=== PATIENT | male | born 1925 | race Caucasian/White ===

== ENCOUNTER → 2016-05-19 | Outpatient (REF) | payer MEDICARE, OTHER ==
[~2016-05-19] MED LIST: IRON65TA PO; LEVO25TA5 PO; TIMO5OPG OU; XALA0.002 OU
== END ==
LOC: M LAB REF 13:00
PROVIDERS: ATTEND Nurse Practitioner Family
DX: D64.9 Anemia, unspecified (principal)

== ENCOUNTER 2016-05-21 08:06 | Outpatient (CLI) | payer MEDICARE, OTHER ==
[~2016-05-21 08:06] MED LIST changes: +ACETAMINOPHEN TAB 650MG DOSE (2X325MG) PO SCH; +diphenhydrAMINE 25 MG CAP PO SCH
== END 2016-05-21 13:00 | disposition home or self-care (01) ==
LOC: M INFU 08:06
PROVIDERS: ATTEND Nurse Practitioner Family
DX: D64.9 Anemia, unspecified (principal); Z79.899 Other long term (current) drug therapy
CPT/HCPCS: 36430; P9016

== ENCOUNTER 2016-06-23 11:05 | Outpatient (CLI) | payer MEDICARE, OTHER ==
[~2016-06-23 11:05] MED LIST changes: -ACETAMINOPHEN TAB 650MG DOSE (2X325MG) PO SCH; -diphenhydrAMINE 25 MG CAP PO SCH
[2016-06-23] MEDS ORDERED: diphenhydrAMINE 25 MG CAP PO ONE (11:15)
[2016-06-23] MEDS ORDERED: ACETAMINOPHEN TAB 650MG DOSE (2X325MG) PO ONE (11:15)
== END 2016-06-23 17:00 | disposition home or self-care (01) ==
LOC: M INFU 11:05
PROVIDERS: ATTEND Nurse Practitioner Family
DX: D64.9 Anemia, unspecified (principal); Z79.899 Other long term (current) drug therapy
CPT/HCPCS: 36430; 86850; 86900; 86901; 86920; P9016

== ENCOUNTER → 2016-07-07 | Outpatient (REF) | payer MEDICARE, OTHER | LOC: M LAB REF 16:51 | PROVIDERS: ATTEND Internal Medicine Medical Oncology | DX: D46.9 Myelodysplastic syndrome, unspecified (principal) ==

== ENCOUNTER 2016-07-08 10:22 | Outpatient (CLI) | payer MEDICARE, OTHER ==
[~2016-07-08] VITALS: Ht 170.2 cm; Wt 56.4 kg
[~2016-07-08 10:22] MED LIST changes: +ACETAMINOPHEN TAB 650MG DOSE (2X325MG) PO SCH; +diphenhydrAMINE 25 MG CAP PO SCH
== END 2016-07-08 15:30 | disposition home or self-care (01) ==
LOC: M INFU 10:22
PROVIDERS: ATTEND Internal Medicine Medical Oncology
DX: D46.9 Myelodysplastic syndrome, unspecified (principal); Z79.899 Other long term (current) drug therapy
CPT/HCPCS: 36430; P9016

== ENCOUNTER → 2016-07-14 | Outpatient (REF) | payer MEDICARE, OTHER ==
[~2016-07-14] MED LIST changes: -ACETAMINOPHEN TAB 650MG DOSE (2X325MG) PO SCH; -diphenhydrAMINE 25 MG CAP PO SCH
[2016-07-14 18:37] LABS: PERCENT SATURATION 59.6 % (19.7-37.4)
== END ==
LOC: M LAB REF 16:19
PROVIDERS: ATTEND Internal Medicine Medical Oncology
DX: D46.9 Myelodysplastic syndrome, unspecified (principal)

== ENCOUNTER 2016-07-21 11:10 | Outpatient (CLI) | payer MEDICARE, OTHER ==
[2016-07-21] MEDS ORDERED: diphenhydrAMINE 25 MG CAP PO ONE (11:45)
[2016-07-21] MEDS ORDERED: ACETAMINOPHEN TAB 650MG DOSE (2X325MG) PO ONE (11:45)
== END 2016-07-21 17:05 | disposition home or self-care (01) ==
LOC: M INFU 11:10
PROVIDERS: ATTEND Internal Medicine Medical Oncology
DX: D46.9 Myelodysplastic syndrome, unspecified (principal); Z79.899 Other long term (current) drug therapy
CPT/HCPCS: 36430; 86850; 86900; 86901; 86920; P9016

== ENCOUNTER 2016-08-21 10:39 | Outpatient (CLI) | payer MEDICARE, OTHER ==
[~2016-08-21 10:39] MED LIST changes: +ACETAMINOPHEN TAB 650MG DOSE (2X325MG) PO SCH; +diphenhydrAMINE 25 MG CAP PO SCH
[2016-08-21 11:03] VITALS: BP 134/63
[2016-08-21 20:05] VITALS: BP 140/60
== END 2016-08-21 20:16 | disposition home or self-care (01) ==
LOC: M OPCLI4PV 10:39 → M MSPAV 10:44 → M OPCLI4PV 20:16
PROVIDERS: ATTEND Internal Medicine Medical Oncology
DX: D64.9 Anemia, unspecified (principal)
CPT/HCPCS: 36430; 86850; 86900; 86901; 86920; P9016

== ENCOUNTER 2016-09-10 11:22 | Outpatient (CLI) | payer MEDICARE, OTHER ==
[~2016-09-10] VITALS: Ht 170.2 cm; Wt 56.4 kg
[~2016-09-10 11:22] MED LIST changes: -ACETAMINOPHEN TAB 650MG DOSE (2X325MG) PO SCH; -diphenhydrAMINE 25 MG CAP PO SCH
[2016-09-10] MEDS ORDERED: diphenhydrAMINE 25 MG CAP PO ONE (11:30)
[2016-09-10] MEDS ORDERED: ACETAMINOPHEN TAB 650MG DOSE (2X325MG) PO ONE (11:30)
== END 2016-09-10 16:50 | disposition home or self-care (01) ==
LOC: M INFU 11:22
PROVIDERS: ATTEND Internal Medicine Medical Oncology
DX: D46.9 Myelodysplastic syndrome, unspecified (principal); Z79.899 Other long term (current) drug therapy
CPT/HCPCS: 36430; 86850; 86900; 86901; 86920; P9016

== ENCOUNTER 2016-10-06 09:44 | Outpatient (CLI) | payer MEDICARE, OTHER ==
[~2016-10-06] VITALS: Ht 170.2 cm; Wt 56.4 kg
[~2016-10-06 09:44] MED LIST changes: +ACETAMINOPHEN TAB 650MG DOSE (2X325MG) PO SCH; -XALA0.002 OU; +XALA0.007 OU; +diphenhydrAMINE 25 MG CAP PO SCH
== END 2016-10-06 16:00 | disposition home or self-care (01) ==
LOC: M INFU 09:44
PROVIDERS: ATTEND Internal Medicine Medical Oncology
DX: D64.9 Anemia, unspecified (principal); Z79.899 Other long term (current) drug therapy
CPT/HCPCS: 36430; 86850; 86900; 86901; 86920; P9016

== ENCOUNTER → 2016-10-20 | Outpatient (REF) | payer MEDICARE, OTHER ==
[~2016-10-20] MED LIST changes: -ACETAMINOPHEN TAB 650MG DOSE (2X325MG) PO SCH; +CIPR-249 PO; +JADE1TAB2 PO; +LASI20TA PO; +NITR4TASL SL; +STOO100T PO; +TIMO0.5S29 OU; +TYLE325T5 PO; -diphenhydrAMINE 25 MG CAP PO SCH
[2016-10-20 15:31] LABS: PERCENT SATURATION 92.4 % (19.7-37.4)
== END ==
LOC: M LAB REF 13:46
PROVIDERS: ATTEND Internal Medicine Medical Oncology
DX: D46.9 Myelodysplastic syndrome, unspecified (principal)

== ENCOUNTER 2016-10-27 10:10 | Outpatient (CLI) | payer MEDICARE, OTHER ==
[~2016-10-27 10:10] MED LIST changes: -CIPR-249 PO; -JADE1TAB2 PO; -LASI20TA PO; -NITR4TASL SL; -STOO100T PO; -TIMO0.5S29 OU; -TYLE325T5 PO
[2016-10-27] MEDS ORDERED: diphenhydrAMINE 25 MG CAP PO ONE (10:15)
[2016-10-27] MEDS ORDERED: ACETAMINOPHEN TAB 650MG DOSE (2X325MG) PO ONE (10:15)
== END 2016-10-27 16:15 | disposition home or self-care (01) ==
LOC: M INFU 10:10
PROVIDERS: ATTEND Internal Medicine Medical Oncology
DX: D47.1 Chronic myeloproliferative disease (principal)
CPT/HCPCS: 36430; 86850; 86900; 86901; 86920; P9016

== ENCOUNTER 2016-11-10 10:35 | Outpatient (CLI) | payer MEDICARE, OTHER ==
[~2016-11-10 10:35] MED LIST changes: +ACETAMINOPHEN TAB 650MG DOSE (2X325MG) PO SCH; +diphenhydrAMINE 25 MG CAP PO SCH
== END 2016-11-10 17:45 | disposition home or self-care (01) ==
LOC: M INFU 10:35
PROVIDERS: ATTEND Internal Medicine Medical Oncology
DX: D46.9 Myelodysplastic syndrome, unspecified (principal); Z79.899 Other long term (current) drug therapy
CPT/HCPCS: 36430; 86850; 86900; 86901; 86920; P9016; P9034

== ENCOUNTER → 2016-12-16 | Outpatient (REF) | payer MEDICARE, OTHER ==
[~2016-12-16] MED LIST changes: -ACETAMINOPHEN TAB 650MG DOSE (2X325MG) PO SCH; +CIPR-249 PO; +JADE1TAB2 PO; +LASI20TA PO; +NITR4TASL SL; +STOO100T PO; +TIMO0.5S29 OU; +TYLE325T5 PO; -diphenhydrAMINE 25 MG CAP PO SCH
[2016-12-16 14:18] LABS: PERCENT SATURATION 89.1 % (19.7-50.0)
== END ==
LOC: M LAB REF 09:34
PROVIDERS: ATTEND Internal Medicine Medical Oncology
DX: D46.9 Myelodysplastic syndrome, unspecified (principal)

== ENCOUNTER 2016-12-23 11:22 | Outpatient (CLI) | payer MEDICARE, OTHER ==
[~2016-12-23 11:22] MED LIST changes: +ACETAMINOPHEN TAB 650MG DOSE (2X325MG) PO SCH; -CIPR-249 PO; -JADE1TAB2 PO; -LASI20TA PO; -NITR4TASL SL; -STOO100T PO; -TIMO0.5S29 OU; -TYLE325T5 PO; +diphenhydrAMINE 25 MG CAP PO SCH
== END 2016-12-23 16:51 | disposition home or self-care (01) ==
LOC: M INFU 11:22
PROVIDERS: ATTEND Internal Medicine Medical Oncology
DX: D64.9 Anemia, unspecified (principal)
CPT/HCPCS: 36430; 86850; 86900; 86901; 86920; P9016

== ENCOUNTER 2017-01-07 12:40 | Inpatient (IN) | payer MEDICARE, OTHER ==
[~2017-01-07 12:40] MED LIST changes: -ACETAMINOPHEN TAB 650MG DOSE (2X325MG) PO SCH; -diphenhydrAMINE 25 MG CAP PO SCH
[2017-01-07] MEDS ORDERED: ACETAMINOPHEN TAB 650MG DOSE (2X325MG) PO PRN (13:00)
[2017-01-07] MEDS ORDERED: PERCOCET 5MG/325MG TAB PO PRN (13:00)
[2017-01-07] MEDS ORDERED: MORPHINE 2 MG/ML 1ML SYRINGE IV PRN (13:00)
[2017-01-07] MEDS ORDERED: ONDANSETRON 4 MG TAB (S0181) PO PRN (13:00)
[2017-01-07] MEDS ORDERED: ONDANSETRON 4MG/2ML VIAL (J2405) IV PRN (13:00)
[2017-01-07 16:00] VITALS: BP 166/71
[2017-01-07] MEDS ORDERED: LASI20TA PO (16:50)
[2017-01-07] MEDS ORDERED: TYLE325T5 PO (16:50)
[2017-01-07] MEDS ORDERED: TIMO0.5S29 OU (16:50)
[2017-01-07] MEDS ORDERED: NITR4TASL SL (16:50)
[2017-01-07] MEDS ORDERED: STOO100T PO (16:50)
[2017-01-07] MEDS ORDERED: JADE1TAB2 PO (16:50)
[2017-01-07] MEDS: NS 1,000 ML IV SCH (17:00)
--- NOTE | 2017-01-07 17:37 | HPEPDOC ---
[facility] Medical History & Physical Date of Admission Jan 07, 2017 History and Physical HISTORY AND PHYSICAL Date of admission: 01/07/2017 PCP: Patient states that he had been seeing Dr. Nguyen, but since his recent discharge from [place], he has seen Dr. 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 He states that for several days prior to admission, he had been feeling bound up and uncomfortable and had not had a good bowel movement. He had been attempting to take stool softeners but this did not help. The day of admission to [facility], which was the day prior to his admission here, he began to have some abdominal pain and had one episode of emesis. He states that the pain never goes away completely, but it does wax and wane. Right now he rates the pain as a 4 out of 10, and states that at its worst, it is an 8-9 out of 10. He denies any blood in the emesis, and states he has not vomited today. He reports a small BM yesterday, but has not had an actual good BM in several days. He denies flatus. When he first arrived to [facility], there was some question as to whether or not this abdominal pain represented chest pain, as he did report that he had attempted to take nitroglycerin 3 times at home. The nitroglycerin evidently relieved his abdominal pain 2 times but did not help the third time. An EKG and troponin at [facility] did not indicate any acute infarct or ischemia. He does not currently report any chest pain. He does report that since being in the hospital his abdominal pain has begun to improve. At [facility], he was treated with IV fluids and imipenem. Past medical history: coronary artery disease status post PCI, hyperlipidemia, osteoarthritis, melanoma, glaucoma, MDS, recent neutropenic fever with pseudomonal bacteremia secondary to pneumonia for which he was admitted to [facility] for over 3 weeks, the patient additionally reports that while he was at [place] on this recent admission, he developed a left foot drop Past surgical history: Cardiac stenting 4, glaucoma surgery, knee surgery Family history: Parkinson's, diabetes mellitus, coronary artery disease, MDS Social history: The patient currently lives independently with his . He states that his has Alzheimer's and until this spring he had been his ' s sole caregiver. He states that recently he has had several health issues, and they now have multiple nurses who come into the home to help with his . He has a very supportive extended family locally. He denies ever smoking tobacco, and states that he drinks approximately 1 glass of wine 5 days a week. Allergies: No known drug allergies Review of systems: General: Positive for mild chills, negative for fever Eyes: Negative for vision changes and ocular discharge ENT: Negative for sore throat and nose bleed Cardiovascular: Negative for chest pain and palpitations Respiratory: Negative for cough, positive for shortness of breath GI: Negative for nausea, positive for emesis yesterday but none today, positive for constipation Musculoskeletal: Negative for neck and back pain Skin: Negative for rash Neuro: Negative for headache, positive for dizziness if he stands up too quickly , positive for numbness and tingling in the left foot that he developed foot drop in Psych: Negative for depression and suicidal ideation Endocrine: Negative for polyuria and polydipsia : Negative For dysuria Heme: Negative for bleeding Home meds: See below Physical exam: Vital signs: Vital Signs Date Time Temp Pulse Resp B/P (MAP) Pulse Ox O2 Delivery O2 Flow Rate FiO2 01/07/17 16:00 98.4 60 22 166/71 (102) 94 Room Air Gen.: awake, alert, no acute distress Eyes: Extraocular movements intact, normal sclera ENT: Moist mucous membranes Cardiovascular: RRR, no murmurs rubs or gallops Lungs: clear to auscultation bilaterally, no rales, rhonchi, or wheeze Abdomen: Soft, normal BS, mild TTP of RUQ and RLQ, no rebound or guarding Extremities: No peripheral edema Neuro: alert and oriented 3, normal speech, no focal deficits Psych: Normal mood with congruent affect Labs and radiology: See below CT of the abdomen and pelvis performed at [facility] reveals cholelithiasis as well as ileus versus early small bowel obstruction Right upper quadrant ultrasound performed at [facility] reveals cholelithiasis with acute cholecystitis Assessment and plan: 89-year-old male with coronary artery disease status post PCI, hyperlipidemia, osteoarthritis, melanoma, glaucoma, 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 1. Acute cholecystitis: The patient is currently afebrile with a neutropenia that appears to be his baseline. We will start the patient on meropenem and get blood and urine cultures. Dr. Cormier has agreed to see the patient in consultation and we appreciate his input and help with management. 2. Ileus versus early SBO: The patient will be nothing by mouth with IV fluids. Again, we appreciate the management of Dr. Cormier. 3. Coronary artery disease status post PCI, hyperlipidemia: The patient currently denies chest pain. EKG and troponins at [facility] were unremarkable. The patient does not take aspirin, statin, or beta jessica at home. This should be discussed with his primary physicians. 4. Glaucoma: Continue home eyedrops. 5. MDS: The patient follows with Dr. Henriquez and is evidently transfusion dependent. His CBC appears to be near baseline, although his platelets may be a little bit lower than usual. The patient denies any current bleeding. We will monitor his thrombocytopenia. He has a history of iron overload for which he takes oral deferasirox at home. We do not have this on formulary. The patient is welcome to bring in his home supply, otherwise we will hold this until discharge. If Dr. Cormier determines that any sort of surgical intervention or other minimally invasive intervention is necessary, we can readdress the issue of transfusion of blood products, but at this time, the patient appears to be near his baseline, and as mentioned, he denies any bleeding. We will monitor this closely, and if the need should arise, we will not hesitate to consult his oncologist. DVT prophylaxis: SCDs Dispo: admit as an inpatient to the service of Dr. Clark CODE STATUS: DNR/DNI as per the patient's expressed wishes during my conversation with him Vital Signs Vital Signs Date Time Temp Pulse Resp B/P (MAP) Pulse Ox O2 Delivery O2 Flow Rate FiO2 01/07/17 16:00 98.4 60 22 166/71 (102) 94 Room Air Home Medications Scheduled Deferasirox (Jadenu) 180 Mg Tab, 540 MG PO DAILY Furosemide (Lasix) 20 Mg Tab, 20 MG PO QHS Latanoprost (Xalatan) 0.005 % Anette, 1 DROP OU BID Timolol Maleate (Timolol Maleate) 0.5 % Anette, 1 DROP OU BID Scheduled PRN (Stool Softener) 100 Mg Tab, 100 MG PO DAILY PRN for CONSTIPATION Acetaminophen (Tylenol) 325 Mg Tab, 650 MG PO Q4H PRN for PAIN Nitroglycerin (Nitrostat) 0.4 Mg Subl, 0.4 MG SL NITRO PRN for CHEST PAIN Allergies Coded Allergies: No Known Allergies (Unverified , 11/15/13) GOMEZ BLACKWELL Jan 07, 2017 17:37
[2017-01-07] MEDS: MEROPENEM INJ 1 GM in D5W MINI-BAG PLUS 100 ML IV SCH (17:40)
[2017-01-07 18:36] LABS: EOS % 1.3 % (0.0-3.0); LYMPH % 7.9 % (24.0-44.0); MEAN CORPUSCULAR HEMOGLOBIN 33.5 pg (27.0-33.0); MEAN CORPUSCULAR HGB CONC 34.3 g/dl (32.0-36.5); MEAN CORPUSCULAR VOLUME 97.5 fl (80.0-96.0); MONO # 0.1 10^3/uL (0.0-0.8); MONO % 3.5 % (0.0-5.0); NEUTROPHILS % 87.3 % (36.0-66.0); WHITE BLOOD COUNT 2.3 10^3/uL (4.0-10.0)
[2017-01-07 18:48] LABS: INR 1.05
[2017-01-07 18:51] LABS: ALBUMIN 3.7 GM/DL (3.2-5.2); ALKALINE PHOSPHATASE 90 U/L (45-117); ALT/SGPT 64 U/L (12-78); ANION GAP 6 MEQ/L (8-16); AST/SGOT 42 U/L (15-37); BILIRUBIN,TOTAL 1.6 MG/DL (0.2-1.0); BLOOD UREA NITROGEN 18 MG/DL (7-18); CALCIUM LEVEL 8.5 MG/DL (8.8-10.2); CARBON DIOXIDE LEVEL 27 MEQ/L (21-32); CHLORIDE LEVEL 99 MEQ/L (98-107); CREATININE FOR GFR 0.78 MG/DL (0.70-1.30); GLOMERULAR FILTRATION RATE > 60.0 (>35); GLUCOSE, FASTING 130 MG/DL (83-110); MAGNESIUM LEVEL 2.2 MG/DL (1.8-2.4); POTASSIUM SERUM 4.2 MEQ/L (3.5-5.1); SODIUM LEVEL 132 MEQ/L (136-145); TOTAL PROTEIN 7.8 GM/DL (6.4-8.2)
[2017-01-07 19:14] LABS: RED CELL DISTRIBUTION WIDTH 24.8 % (11.5-14.5)
[2017-01-07 19:15] LABS: LYMPH # 0.2 10^3/uL (1.5-4.5)
[2017-01-07 19:17] LABS: ADD MORPHOLOGY? NO; PLATELET COUNT, AUTOMATED 24 10^3/uL (150-450)
[2017-01-07 20:00] VITALS: BP 174/76
[2017-01-07] MEDS: LATANOPROST 0.005% OPHTH SOLN 2.5 ML OU SCH (20:21)
[2017-01-07] MEDS: TIMOLOL MALEATE 0.5% OPHTH SOLN 5 ML OU SCH (20:21)
[2017-01-07 23:59] VITALS: BP 100/59
[2017-01-08] MEDS: NS 1,000 ML IV SCH ×2 (02:57→17:38)
[2017-01-08] MEDS: MEROPENEM INJ 1 GM in D5W MINI-BAG PLUS 100 ML IV SCH ×3 (02:57→17:38)
[2017-01-08 04:00] VITALS: BP 155/79
[2017-01-08 06:21] LABS: MEAN CORPUSCULAR HEMOGLOBIN 32.7 pg (27.0-33.0); MEAN CORPUSCULAR HGB CONC 33.5 g/dl (32.0-36.5); MEAN CORPUSCULAR VOLUME 97.8 fl (80.0-96.0)
[2017-01-08 06:37] LABS: ALBUMIN 3.4 GM/DL (3.2-5.2); ALBUMIN/GLOBULIN RATIO 0.85 (1.00-1.93); ALKALINE PHOSPHATASE 82 U/L (45-117); ALT/SGPT 50 U/L (12-78); ANION GAP 6 MEQ/L (8-16); AST/SGOT 32 U/L (15-37); BILIRUBIN,TOTAL 1.5 MG/DL (0.2-1.0); BLOOD UREA NITROGEN 15 MG/DL (7-18); CALCIUM LEVEL 8.2 MG/DL (8.8-10.2); CARBON DIOXIDE LEVEL 27 MEQ/L (21-32); CHLORIDE LEVEL 100 MEQ/L (98-107); CREATININE FOR GFR 0.66 MG/DL (0.70-1.30); GLOMERULAR FILTRATION RATE > 60.0 (>35); GLUCOSE, FASTING 123 MG/DL (83-110); POTASSIUM SERUM 4.1 MEQ/L (3.5-5.1); SODIUM LEVEL 133 MEQ/L (136-145); TOTAL PROTEIN 7.4 GM/DL (6.4-8.2)
[2017-01-08 07:07] LABS: RED CELL DISTRIBUTION WIDTH 24.9 % (11.5-14.5)
[2017-01-08 07:08] LABS: ADD MANUAL DIFFER YES; DIFF SLIDE NUMBER 65; PLATELET COUNT, AUTOMATED 28 10^3/uL (150-450)
[2017-01-08 07:20] LABS: BANDS 2 % (< 11); EOSINOPHILS 2 % (0-5); NUCLEATED RED BLOOD CELL 1 % (0-0)
[2017-01-08 07:22] LABS: ANISOCYTOSIS 3+; POLYCHROMASIA 1+
[2017-01-08 07:30] VITALS: BP 140/73
[2017-01-08] MEDS: LATANOPROST 0.005% OPHTH SOLN 2.5 ML OU SCH ×2 (10:02→20:12)
[2017-01-08] MEDS: TIMOLOL MALEATE 0.5% OPHTH SOLN 5 ML OU SCH ×2 (10:02→20:12)
[2017-01-08 12:00] VITALS: BP 166/72
--- NOTE | 2017-01-08 13:28 | IPNPDOC ---
Date Seen The patient was seen on 01/08/17. Progress Note SUBJECTIVE: 89 yo admitted yesterday for ileus and abdominal pain likely related to gallbladder disease. Denies f/c/r, no n/v/d. currently NPO and on IVfluids OBJECTIVE PHYSICAL EXAMINATION: VITAL SIGNS: Please see below. GENERAL: [NAD] HEENT: [unremarkable] CARDIOVASCULAR: [REGULAR RATE AND RHYTHM]. RESPIRATORY: [clear]. ABDOMINAL: [soft, VAGUE RUQ tenderness without rebound, normoactive BS] EXTREMITIES: [no edema, no calf tendernes] NEUROLOGICAL: [grossly intact] LABORATORY DATA: Please see below. MICROBIOLOGY: Please see below. DVT prophylaxis ordered?: [yes] ASSESSMENT AND PLAN: This is a -year-old [RACE] [GENDER] with . PROBLEMS: 1. [ACUTE CHOLECYSTITIS]: [Appreciate general surgery input. Continue nothing by mouth, IV fluids]. 2. [Ileus]: [Likely related to gallbladder disease. Continue nothing by mouth and bowel rest.]. 3. [Coronary artery disease status post PCI, hyperlipidemia]: [Recent EKG and troponins are unremarkable. He informs us that he currently does not take aspirin, statin, beta jessica. Can follow up with his primary care provider. 4. Glaucoma: Continue eyedrops. 5.MDS: Follows with Dr Henriquez, transfusion dependent. His CBC appears to be near baseline, although his platelets may be a little bit lower than usual. The patient denies any current bleeding. We will monitor his thrombocytopenia. He has a history of iron overload for which he takes oral deferasirox at home. We do not have this on formulary. The patient is welcome to bring in his home supply, otherwise we will hold this until discharge. If Dr. Cormier determines that any sort of surgical intervention or other minimally invasive intervention is necessary, we can readdress the issue of transfusion of blood products, but at this time, the patient appears to be near his baseline, and as mentioned, he denies any bleeding. We will monitor this closely, and if the need should arise, we will not hesitate to consult his oncologist. 6. DVT prophylaxis: Teds and sequentials]. DISPOSITION: [Spoke to the patient and his daughter today regarding ongoing therapy does appear to be clinically improved from yesterday. We'll continue to follow per general surgery recommendations.]. VS, I&O, 24H, [facility] Vital Signs/I&O Vital Signs Date Time Temp Pulse Resp B/P (MAP) Pulse Ox O2 Delivery O2 Flow Rate FiO2 01/08/17 12:00 98.4 63 20 166/72 (103) 99 Room Air I&O- Last 24 Hours up to 6 AM 01/09/17 06:00 Intake Total 550 ml Output Total 550 ml Balance 0 ml Laboratory Data 24H LABS Laboratory Tests 2 01/07/17 18:18: White Blood Count 2.3L, Red Blood Count 2.81L, Hemoglobin 9.4L, Hematocrit 27.4L , Mean Corpuscular Volume 97.5H, Mean Corpuscular Hemoglobin 33.5H, Mean Corpuscular Hemoglobin Concent 34.3, Red Cell Distribution Width 24.8H, Platelet Count 24*L, Neutrophils (%) (Auto) 87.3H, Lymphocytes (%) (Auto) 7.9L, Monocytes (%) (Auto) 3.5, Eosinophils (%) (Auto) 1.3, Basophils (%) (Auto) 0.0, Neutrophils # (Auto) 2.0, Lymphocytes # (Auto) 0.2L, Monocytes # (Auto) 0.1, Eosinophils # (Auto) 0.0, Basophils # (Auto) 0.0, Immature Granulocyte # (Auto) 0.0, Nucleated Red Blood Cells % (auto) 0.0, Prothrombin Time 13.8, Prothromb Time International Ratio 1.05, Anion Gap 6L, Glomerular Filtration Rate > 60.0, Blood Urea Nitrogen 18, Creatinine 0.78, Sodium Level 132L, Potassium Level 4.2 , Chloride Level 99, Carbon Dioxide Level 27, Calcium Level 8.5L, Aspartate Amino Transf (AST/SGOT) 42H, Alanine Aminotransferase (ALT/SGPT) 64, Alkaline Phosphatase 90, Total Bilirubin 1.6H, Total Protein 7.8, Albumin 3.7, Magnesium Level 2.2, Albumin/Globulin Ratio 0.90L 01/08/17 05:44: White Blood Count 2.0L, Red Blood Count 2.72L, Hemoglobin 8.9L, Hematocrit 26.6L , Mean Corpuscular Volume 97.8H, Mean Corpuscular Hemoglobin 32.7, Mean Corpuscular Hemoglobin Concent 33.5, Red Cell Distribution Width 24.9H, Platelet Count 28*L, Lymphocytes # (Auto) , Anion Gap 6L, Glomerular Filtration Rate > 60.0, Blood Urea Nitrogen 15, Creatinine 0.66L, Sodium Level 133L, Potassium Level 4.1, Chloride Level 100, Carbon Dioxide Level 27, Calcium Level 8.2L, Aspartate Amino Transf (AST/SGOT) 32, Alanine Aminotransferase (ALT/SGPT) 50, Alkaline Phosphatase 82, Total Bilirubin 1.5H, Total Protein 7.4, Albumin 3.4, Magnesium Level 2.0, Albumin/Globulin Ratio 0.85L, Neutrophils 77H, Band Neutrophils 2, Lymphocytes (Manual) 13L, Monocytes (Manual) 5, Eosinophils ( Manual) 2, Atypical Lymphocytes 1, Nucleated Red Blood Cells 1H, Polychromasia 1 +, Anisocytosis 3+, Platelet Estimate MARKED DECREASE CBC/BMP Laboratory Tests 01/07/17 18:18 Red Blood Count 2.81 L, Mean Corpuscular Volume 97.5 H, Mean Corpuscular Hemoglobin 33.5 H, Mean Corpuscular Hemoglobin Concent 34.3, Red Cell Distribution Width 24.8 H, Neutrophils (%) (Auto) 87.3 H, Lymphocytes (%) (Auto ) 7.9 L, Monocytes (%) (Auto) 3.5, Eosinophils (%) (Auto) 1.3, Basophils (%) ( Auto) 0.0, Neutrophils # (Auto) 2.0, Lymphocytes # (Auto) 0.2 L, Monocytes # ( Auto) 0.1, Eosinophils # (Auto) 0.0, Basophils # (Auto) 0.0, Calcium Level 8.5 L , Aspartate Amino Transf (AST/SGOT) 42 H, Alanine Aminotransferase (ALT/SGPT) 64 , Alkaline Phosphatase 90, Total Bilirubin 1.6 H, Total Protein 7.8, Albumin 3.7 01/08/17 05:44 Red Blood Count 2.72 L, Mean Corpuscular Volume 97.8 H, Mean Corpuscular Hemoglobin 32.7, Mean Corpuscular Hemoglobin Concent 33.5, Red Cell Distribution Width 24.9 H, Lymphocytes # (Auto) , Calcium Level 8.2 L, Aspartate Amino Transf (AST/SGOT) 32, Alanine Aminotransferase (ALT/SGPT) 50, Alkaline Phosphatase 82, Total Bilirubin 1.5 H, Total Protein 7.4, Albumin 3.4 Microbiology Microbiology 01/07/17 Blood Culture, Received Pending 01/07/17 Blood Culture, Received Pending 01/08/17 Urine Culture, Received Pending MARYURI HARDING DO Jan 08, 2017 13:28
[2017-01-08 16:00] VITALS: BP 133/62
[2017-01-08 20:00] VITALS: BP 138/63
[2017-01-08 23:59] VITALS: BP 116/58
[2017-01-09] MEDS: MEROPENEM INJ 1 GM in D5W MINI-BAG PLUS 100 ML IV SCH ×3 (03:04→17:24)
[2017-01-09 04:00] VITALS: BP 127/58
[2017-01-09 05:55] LABS: MEAN CORPUSCULAR HEMOGLOBIN 32.8 pg (27.0-33.0); MEAN CORPUSCULAR HGB CONC 33.6 g/dl (32.0-36.5); MEAN CORPUSCULAR VOLUME 97.4 fl (80.0-96.0); WHITE BLOOD COUNT 1.4 10^3/uL (4.0-10.0)
[2017-01-09 06:01] LABS: RED CELL DISTRIBUTION WIDTH 24.5 % (11.5-14.5)
[2017-01-09 06:02] LABS: ADD MANUAL DIFFER YES; DIFF SLIDE NUMBER 44; PLATELET COUNT, AUTOMATED 20 10^3/uL (150-450)
[2017-01-09 06:30] LABS: ALBUMIN 2.8 GM/DL (3.2-5.2); ALBUMIN/GLOBULIN RATIO 0.82 (1.00-1.93); ALKALINE PHOSPHATASE 64 U/L (45-117); ALT/SGPT 35 U/L (12-78); ANION GAP 6 MEQ/L (8-16); AST/SGOT 20 U/L (15-37); BILIRUBIN,TOTAL 1.2 MG/DL (0.2-1.0); BLOOD UREA NITROGEN 15 MG/DL (7-18); CARBON DIOXIDE LEVEL 26 MEQ/L (21-32); CHLORIDE LEVEL 104 MEQ/L (98-107); GLOMERULAR FILTRATION RATE > 60.0 (>35); GLUCOSE, FASTING 119 MG/DL (83-110); MAGNESIUM LEVEL 2.1 MG/DL (1.8-2.4); POTASSIUM SERUM 3.5 MEQ/L (3.5-5.1); SODIUM LEVEL 136 MEQ/L (136-145); TOTAL PROTEIN 6.2 GM/DL (6.4-8.2)
[2017-01-09 06:51] LABS: ANISOCYTOSIS 2+; EOSINOPHILS 2 % (0-5)
[2017-01-09] MEDS: NS 1,000 ML IV SCH (07:57)
[2017-01-09 09:01] VITALS: BP 109/59
[2017-01-09] MEDS: TIMOLOL MALEATE 0.5% OPHTH SOLN 5 ML OU SCH ×2 (09:02→20:06)
[2017-01-09] MEDS: LATANOPROST 0.005% OPHTH SOLN 2.5 ML OU SCH ×2 (09:02→20:07)
--- NOTE | 2017-01-09 09:19 | REP ---
PA and lateral chest: Comparison is 01/07/2017. The lung barbosa remain clear. Cardiac size is normal. The fly, mediastinum, and bony thorax are unremarkable. Impression: Negative PA and lateral chest. No change. Signed by Freddie Thorpe MD 01/09/2017 09:11 A
[2017-01-09 12:00] VITALS: BP 111/62
[2017-01-09 15:05] VITALS: BP 144/65
--- NOTE | 2017-01-09 16:05 | IPNPDOC ---
Date Seen The patient was seen on 01/09/17. Progress Note SUBJECTIVE: Patient is a 89-year-old bedside resting comfortably. His daughter present. No overnight issues. He denies chest pain, shortness of breath, nausea , vomiting, diarrhea. No fevers or chills. And feels his abdominal pain is slightly improved. OBJECTIVE PHYSICAL EXAMINATION: VITAL SIGNS: Please see below. GENERAL: [No acute distress, alert and pleasant] HEENT: [PERRLA. Throat clear. Neck supple] CARDIOVASCULAR: [Regular rate and rhythm]. RESPIRATORY: [Clear to auscultation bilaterally]. ABDOMINAL: [Vague upper and right upper quadrant discomfort but no rebound tenderness, positive bowel sounds] EXTREMITIES: [No edema, no calf tenderness] NEUROLOGICAL: [Grossly intact] PSYCHOLOGICAL: [Negative] LABORATORY DATA: Please see below. DVT prophylaxis ordered?: [Yes] ASSESSMENT AND PLAN: This is a 89-year-old male with suspected cholecystitis, abdominal pain, seems to be mildly improved. PROBLEMS: 1. [ACUTE CHOLECYSTITIS]: [Appreciate general surgery input. Plan for the time being as conservative management. Currently on clear liquid diets, we'll see how he does throughout the day if he tolerates this well. He might be a good candidate to advance his diet and discontinue IV fluids. We shall see how he does this afternoon]. 2. [Ileus]: [Likely related to gallbladder disease. Passing flatus, tolerating by mouth intake. We'll see if we can advance his diet]. 3. [Coronary artery disease status post PCI, hyperlipidemia]: [Currently does not take aspirin, statin, beta jessica. Can follow up with his primary care provider. 4. Glaucoma: Continue eyedrops. 5.MDS: Follows with Dr Henriquez, transfusion dependent. Spoke to Dr. Henriquez this morning and will not plan on transfusing unless bleeding, platelets drop below 15k, or hemaglobin drops again tomorrow. Consideration for transfusion should he need percutaneous drain placement. 6. DVT prophylaxis: Teds and sequentials]. DISPOSITION: [Likely here for another 24-48 hours. We'll try to advance diet as indicated above. Continue with conservative treatment and see how he does again in the morning.]. VS, I&O, 24H, Fishbone Vital Signs/I&O Vital Signs Date Time Temp Pulse Resp B/P (MAP) Pulse Ox O2 Delivery O2 Flow Rate FiO2 01/09/17 12:00 98.0 79 18 111/62 (78) 96 Room Air I&O- Last 24 Hours up to 6 AM 01/10/17 06:00 Intake Total 1390 ml Output Total 800 ml Balance 590 ml Laboratory Data 24H LABS Laboratory Tests 2 01/09/17 05:33: White Blood Count 1.4L, Red Blood Count 2.29L, Hemoglobin 7.5L, Hematocrit 22.3L , Mean Corpuscular Volume 97.4H, Mean Corpuscular Hemoglobin 32.8, Mean Corpuscular Hemoglobin Concent 33.6, Red Cell Distribution Width 24.5H, Platelet Count 20*L, Lymphocytes # (Auto) , Neutrophils 77H, Lymphocytes (Manual ) 21, Eosinophils (Manual) 2, Anisocytosis 2+, Macrocytosis 1+, Platelet Estimate MARKED DECREASE, Anion Gap 6L, Glomerular Filtration Rate > 60.0, Blood Urea Nitrogen 15, Creatinine 0.60L, Sodium Level 136, Potassium Level 3.5 , Chloride Level 104, Carbon Dioxide Level 26, Calcium Level 8.0L, Aspartate Amino Transf (AST/SGOT) 20, Alanine Aminotransferase (ALT/SGPT) 35, Alkaline Phosphatase 64, Total Bilirubin 1.2H, Total Protein 6.2L, Albumin 2.8L, Magnesium Level 2.1, C-Reactive Protein, Quantitative 13.90H, Albumin/Globulin Ratio 0.82L CBC/BMP Laboratory Tests 01/09/17 05:33 Red Blood Count 2.29 L, Mean Corpuscular Volume 97.4 H, Mean Corpuscular Hemoglobin 32.8, Mean Corpuscular Hemoglobin Concent 33.6, Red Cell Distribution Width 24.5 H, Lymphocytes # (Auto) , Calcium Level 8.0 L, Aspartate Amino Transf (AST/SGOT) 20, Alanine Aminotransferase (ALT/SGPT) 35, Alkaline Phosphatase 64, Total Bilirubin 1.2 H, Total Protein 6.2 L, Albumin 2.8 L Microbiology Microbiology 01/07/17 Blood Culture - Preliminary, Resulted No growth after 24 hours . All specim... 01/07/17 Blood Culture - Preliminary, Resulted No growth after 24 hours . All specim... 01/08/17 Urine Culture - Final, Complete MARYURI HARDING DO Jan 09, 2017 16:05
[2017-01-09 22:00] VITALS: BP 113/55
[2017-01-10 02:00] VITALS: BP 111/54
[2017-01-10] MEDS: MEROPENEM INJ 1 GM in D5W MINI-BAG PLUS 100 ML IV SCH ×3 (02:02→17:36)
[2017-01-10 06:00] VITALS: BP 105/53
[2017-01-10 07:22] LABS: EOS % 2.4 % (0.0-3.0); LYMPH # 0.3 10^3/uL (1.5-4.5); LYMPH % 37.6 % (24.0-44.0); MEAN CORPUSCULAR HEMOGLOBIN 33.1 pg (27.0-33.0); MEAN CORPUSCULAR HGB CONC 33.9 g/dl (32.0-36.5); MEAN CORPUSCULAR VOLUME 97.7 fl (80.0-96.0); MONO # 0.1 10^3/uL (0.0-0.8); MONO % 7.1 % (0.0-5.0); NEUTROPHILS % 52.9 % (36.0-66.0)
[2017-01-10 07:46] LABS: ALBUMIN 2.5 GM/DL (3.2-5.2); ALBUMIN/GLOBULIN RATIO 0.76 (1.00-1.93); ALKALINE PHOSPHATASE 64 U/L (45-117); ALT/SGPT 29 U/L (12-78); ANION GAP 7 MEQ/L (8-16); AST/SGOT 17 U/L (15-37); BILIRUBIN,TOTAL 0.7 MG/DL (0.2-1.0); BLOOD UREA NITROGEN 18 MG/DL (7-18); CALCIUM LEVEL 7.7 MG/DL (8.8-10.2); CARBON DIOXIDE LEVEL 25 MEQ/L (21-32); CHLORIDE LEVEL 105 MEQ/L (98-107); GLOMERULAR FILTRATION RATE > 60.0 (>35); GLUCOSE, FASTING 103 MG/DL (83-110); POTASSIUM SERUM 3.4 MEQ/L (3.5-5.1); SODIUM LEVEL 137 MEQ/L (136-145); TOTAL PROTEIN 5.8 GM/DL (6.4-8.2)
[2017-01-10 07:47] LABS: WHITE BLOOD COUNT 0.9 10^3/uL (4.0-10.0)
[2017-01-10 07:48] LABS: NEUTROPHILS # 0.5 10^3/uL (1.8-7.7); PLATELET COUNT, AUTOMATED 19 10^3/uL (150-450); RED CELL DISTRIBUTION WIDTH 24.3 % (11.5-14.5)
[2017-01-10] MEDS: TIMOLOL MALEATE 0.5% OPHTH SOLN 5 ML OU SCH ×2 (07:57→20:03)
[2017-01-10] MEDS: LATANOPROST 0.005% OPHTH SOLN 2.5 ML OU SCH ×2 (07:57→20:04)
--- NOTE | 2017-01-10 09:47 | IPNPDOC ---
Date Seen The patient was seen on 01/10/17. Progress Note SUBJECTIVE: Patient is a pleasant 89-year-old gentleman, seated at bedside eating breakfast, resting comfortably. Denies overnight issues. No chest pain, fevers, chills, nausea, vomiting, shortness of breath, productive sputum. Feels his abdominal pain has improved significantly. OBJECTIVE PHYSICAL EXAMINATION: VITAL SIGNS: Please see below. GENERAL: No acute distress, alert and oriented 3 HEENT: PERRLA. Throat clear. Neck supple, no adenopathy CARDIOVASCULAR: Regular rate and rhythm. RESPIRATORY: Clear to auscultation bilaterally. ABDOMINAL: Soft, nontender, distended, positive bowel sounds. No masses. No rebound EXTREMITIES: No edema, no calf tenderness NEUROLOGICAL: Cranial nerves II through XII grossly intact PSYCHOLOGICAL: Negative LABORATORY DATA: Please see below. MICROBIOLOGY: Please see below. DVT prophylaxis ordered?: Yes ASSESSMENT AND PLAN: This is a 89-year-old gentleman with abdominal pain, cholecystitis and followed by general surgery. And history of MDS. She follows outpatient with Dr. Henriquez. PROBLEMS: 1. ACUTE CHOLECYSTITIS: Abdominal pain much improved. Advance diet yesterday, which she is tolerating. He remains afebrile with out Leukocytosis. The cultures remain negative Appreciate input from general surgery for time being, we are continuing with conservative management.. 2. Ileus: Likely resolved. 3. Coronary artery disease status post PCI, hyperlipidemia: Currently does not take aspirin, statin, beta jessica. Can follow up with his primary care provider. 4. Glaucoma: Continue eyedrops. 5.MDS: Follows with Dr Henriquez outpatient. He did have a drop in his hemoglobin today as well as his calculated ANC is below 500 (470 today). Therefore, we'll go ahead and give him a unit of packed red blood cells and Neupogen for 2 days. 6. DVT prophylaxis: Teds and sequentials. DISPOSITION: Likely here. Another couple days, getting Neupogen today and tomorrow. We'll see how he's doing tomorrow for possible discharge.]. VS, I&O, 24H, Fishbone Vital Signs/I&O Vital Signs Date Time Temp Pulse Resp B/P (MAP) Pulse Ox O2 Delivery O2 Flow Rate FiO2 01/10/17 06:00 99.0 72 18 105/53 (70) 94 Room Air Laboratory Data 24H LABS Laboratory Tests 2 01/10/17 06:17: Immature Granulocyte % (Auto) 0.0, White Blood Count 0.9*L, Red Blood Count 1.72L, Hemoglobin 5.7*L, Hematocrit 16.8L, Mean Corpuscular Volume 97.7H, Mean Corpuscular Hemoglobin 33.1H, Mean Corpuscular Hemoglobin Concent 33.9, Red Cell Distribution Width 24.3H, Platelet Count 19*L, Neutrophils (%) (Auto) 52.9 , Lymphocytes (%) (Auto) 37.6, Monocytes (%) (Auto) 7.1H, Eosinophils (%) (Auto ) 2.4, Basophils (%) (Auto) 0.0, Neutrophils # (Auto) 0.5L, Lymphocytes # (Auto ) 0.3L, Monocytes # (Auto) 0.1, Eosinophils # (Auto) 0.0, Basophils # (Auto) 0.0 , Immature Granulocyte # (Auto) 0.0, Nucleated Red Blood Cells % (auto) 0.0, Anion Gap 7L, Glomerular Filtration Rate > 60.0, Blood Urea Nitrogen 18, Creatinine 0.60L, Sodium Level 137, Potassium Level 3.4L, Chloride Level 105, Carbon Dioxide Level 25, Calcium Level 7.7L, Aspartate Amino Transf (AST/SGOT) 17, Alanine Aminotransferase (ALT/SGPT) 29, Alkaline Phosphatase 64, Total Bilirubin 0.7, Total Protein 5.8L, Albumin 2.5L, Magnesium Level 2.0, C- Reactive Protein, Quantitative 12.60H, Albumin/Globulin Ratio 0.76L CBC/BMP Laboratory Tests 01/10/17 06:17 Red Blood Count 1.72 L, Mean Corpuscular Volume 97.7 H, Mean Corpuscular Hemoglobin 33.1 H, Mean Corpuscular Hemoglobin Concent 33.9, Red Cell Distribution Width 24.3 H, Neutrophils (%) (Auto) 52.9, Lymphocytes (%) (Auto) 37.6, Monocytes (%) (Auto) 7.1 H, Eosinophils (%) (Auto) 2.4, Basophils (%) ( Auto) 0.0, Neutrophils # (Auto) 0.5 L, Lymphocytes # (Auto) 0.3 L, Monocytes # ( Auto) 0.1, Eosinophils # (Auto) 0.0, Basophils # (Auto) 0.0, Calcium Level 7.7 L , Aspartate Amino Transf (AST/SGOT) 17, Alanine Aminotransferase (ALT/SGPT) 29, Alkaline Phosphatase 64, Total Bilirubin 0.7, Total Protein 5.8 L, Albumin 2.5 L Microbiology Microbiology 01/07/17 Blood Culture - Preliminary, Resulted No Growth after 48 hours. All Specime... 01/07/17 Blood Culture - Preliminary, Resulted No Growth after 48 hours. All Specime... 01/08/17 Urine Culture - Final, Complete MARYURI HARDING DO Jan 10, 2017 09:47
[2017-01-10] MEDS: FILGRASTIM 300 MCG/0.5 ML SYRINGE (J1442) SC SCH (11:32)
[2017-01-10 14:00] VITALS: BP 111/54
[2017-01-10 22:00] VITALS: BP 109/55
[2017-01-11] MEDS: MEROPENEM INJ 1 GM in D5W MINI-BAG PLUS 100 ML IV SCH ×2 (03:24→12:32)
[2017-01-11 05:26] LABS: EOS % 4.4 % (0.0-3.0); LYMPH # 0.3 10^3/uL (1.5-4.5); MEAN CORPUSCULAR HEMOGLOBIN 32.2 pg (27.0-33.0); MEAN CORPUSCULAR HGB CONC 33.9 g/dl (32.0-36.5); MONO # 0.1 10^3/uL (0.0-0.8); MONO % 6.6 % (0.0-5.0); NEUTROPHILS % 49.4 % (36.0-66.0)
[2017-01-11 05:36] LABS: RED CELL DISTRIBUTION WIDTH 23.5 % (11.5-14.5); WHITE BLOOD COUNT 0.9 10^3/uL (4.0-10.0)
[2017-01-11 05:37] LABS: PLATELET COUNT, AUTOMATED 18 10^3/uL (150-450)
[2017-01-11 05:39] LABS: IMMATURE GRANULOCYTE % 6.6 % (0-0); NEUTROPHILS # 0.5 10^3/uL (1.8-7.7)
[2017-01-11 05:51] LABS: ALBUMIN 2.6 GM/DL (3.2-5.2); ALBUMIN/GLOBULIN RATIO 0.79 (1.00-1.93); ALKALINE PHOSPHATASE 67 U/L (45-117); ALT/SGPT 26 U/L (12-78); ANION GAP 6 MEQ/L (8-16); AST/SGOT 17 U/L (15-37); BLOOD UREA NITROGEN 19 MG/DL (7-18); CALCIUM LEVEL 7.8 MG/DL (8.8-10.2); CARBON DIOXIDE LEVEL 27 MEQ/L (21-32); CHLORIDE LEVEL 107 MEQ/L (98-107); CREATININE FOR GFR 0.58 MG/DL (0.70-1.30); GLOMERULAR FILTRATION RATE > 60.0 (>35); GLUCOSE, FASTING 92 MG/DL (83-110); POTASSIUM SERUM 3.6 MEQ/L (3.5-5.1); SODIUM LEVEL 140 MEQ/L (136-145); TOTAL PROTEIN 5.9 GM/DL (6.4-8.2)
[2017-01-11 06:00] VITALS: BP 113/59
[2017-01-11] MEDS: LATANOPROST 0.005% OPHTH SOLN 2.5 ML OU SCH (10:17)
[2017-01-11] MEDS: TIMOLOL MALEATE 0.5% OPHTH SOLN 5 ML OU SCH (10:17)
[2017-01-11] MEDS: FILGRASTIM 300 MCG/0.5 ML SYRINGE (J1442) SC SCH (10:27)
[2017-01-11 14:00] VITALS: BP 115/53
[2017-01-11] MEDS ORDERED: CIPR-249 PO (15:22)
--- NOTE | 2017-01-11 15:33 | IPNPDOC ---
Date Seen The patient was seen on 01/11/17. Progress Note SUBJECTIVE: Patient is a pleasant 89-year-old gentleman, seated at bedside eating breakfast, resting comfortably. Denies overnight issues. No chest pain, fevers, chills, nausea, vomiting, shortness of breath, productive sputum. Feels his abdominal pain has improved significantly. yesterday started on Neupogen and getting second dose today (per Dr. Henriquez's recommendation) OBJECTIVE PHYSICAL EXAMINATION: VITAL SIGNS: Please see below. GENERAL: No acute distress, alert and oriented 3 HEENT: PERRLA. Throat clear. Neck supple, no adenopathy CARDIOVASCULAR: Regular rate and rhythm. RESPIRATORY: Clear to auscultation bilaterally. ABDOMINAL: Soft, nontender, distended, positive bowel sounds. No masses. No rebound EXTREMITIES: No edema, no calf tenderness NEUROLOGICAL: Cranial nerves II through XII grossly intact PSYCHOLOGICAL: Negative LABORATORY DATA: Please see below. MICROBIOLOGY: Please see below. DVT prophylaxis ordered?: [yes] ASSESSMENT AND PLAN: This is a 89-year-old gentleman with abdominal pain, cholecystitis and followed by general surgery. And history of MDS. She follows outpatient with Dr. Henriquez. PROBLEMS: 1. ACUTE CHOLECYSTITIS: Abdominal pain much improved. Advance diet yesterday, which she is tolerating. He remains afebrile with out Leukocytosis. The cultures remain negative. Doing much better and likely go home today or tomorrow. Stopped meropenem and started PO Cipro. 2. Ileus: Resolved. 3. Coronary artery disease status post PCI, hyperlipidemia: Currently does not take aspirin, statin, beta jessica. Can follow up with his primary care provider. 4. Glaucoma: Continue eyedrops. 5.MDS: Follows with Dr Henriquez outpatient. 6. Neutropenia: receiving day 2 Neupogen 7. Acute on Chronic anemia (likely secondary to illness): will transfuse this morning and repeat H/H at noon to determine if he can be discharged home. 6. DVT prophylaxis: Teds and sequentials. DISPOSITION: Likely discharge later today or tomorrow depending on h/h. VS, I&O, 24H, Fishbone Vital Signs/I&O Vital Signs Date Time Temp Pulse Resp B/P (MAP) Pulse Ox O2 Delivery O2 Flow Rate FiO2 01/11/17 14:00 98.6 67 18 115/53 (73) 100 10/1/17 06:00 Room Air I&O- Last 24 Hours up to 6 AM 01/12/17 05:59 Intake Total 720 ml Output Total 0 ml Balance 720 ml Laboratory Data 24H LABS Laboratory Tests 2 01/11/17 05:09: Immature Granulocyte % (Auto) 6.6H, White Blood Count 0.9*L, Red Blood Count 2.02L, Hemoglobin 6.5*L, Hematocrit 19.2L, Mean Corpuscular Volume 95.0, Mean Corpuscular Hemoglobin 32.2, Mean Corpuscular Hemoglobin Concent 33.9, Red Cell Distribution Width 23.5H, Platelet Count 18*L, Neutrophils (%) (Auto) 49.4, Lymphocytes (%) (Auto) 33.0, Monocytes (%) (Auto) 6.6H, Eosinophils (%) (Auto) 4.4H, Basophils (%) (Auto) 0.0, Neutrophils # (Auto) 0.5L, Lymphocytes # (Auto) 0.3L, Monocytes # (Auto) 0.1, Eosinophils # (Auto) 0.0, Basophils # (Auto) 0.0, Immature Granulocyte # (Auto) 0.1H, Nucleated Red Blood Cells % (auto) 0.0, Anion Gap 6L, Glomerular Filtration Rate > 60.0, Blood Urea Nitrogen 19H, Creatinine 0.58L, Sodium Level 140, Potassium Level 3.6, Chloride Level 107, Carbon Dioxide Level 27, Calcium Level 7.8L, Aspartate Amino Transf (AST/SGOT) 17, Alanine Aminotransferase (ALT/SGPT) 26, Alkaline Phosphatase 67, Total Bilirubin 1.0, Total Protein 5.9L, Albumin 2.6L, Magnesium Level 2.0, C- Reactive Protein, Quantitative 8.38H, Albumin/Globulin Ratio 0.79L CBC/BMP Laboratory Tests 01/11/17 05:09 Red Blood Count 2.02 L, Mean Corpuscular Volume 95.0, Mean Corpuscular Hemoglobin 32.2, Mean Corpuscular Hemoglobin Concent 33.9, Red Cell Distribution Width 23.5 H, Neutrophils (%) (Auto) 49.4, Lymphocytes (%) (Auto) 33.0, Monocytes (%) (Auto) 6.6 H, Eosinophils (%) (Auto) 4.4 H, Basophils (%) ( Auto) 0.0, Neutrophils # (Auto) 0.5 L, Lymphocytes # (Auto) 0.3 L, Monocytes # ( Auto) 0.1, Eosinophils # (Auto) 0.0, Basophils # (Auto) 0.0, Calcium Level 7.8 L , Aspartate Amino Transf (AST/SGOT) 17, Alanine Aminotransferase (ALT/SGPT) 26, Alkaline Phosphatase 67, Total Bilirubin 1.0, Total Protein 5.9 L, Albumin 2.6 L Microbiology Microbiology 01/07/17 Blood Culture - Preliminary, Resulted No Growth after 72 hours. All specime... 01/07/17 Blood Culture - Preliminary, Resulted No Growth after 72 hours. All specime... 01/08/17 Urine Culture - Final, Complete MARYURI HARDING DO Jan 11, 2017 15:33
[2017-01-11] MEDS ORDERED: CIPROFLOXACIN 500 MG TAB PO ONE (16:00)
--- NOTE | 2017-01-11 16:14 | DS.PDOC ---
Discharge Summary General Date of Admission Jan 07, 2017 at 15:59 Date of Discharge Jan 11, 2017 Primary Care Physician: HAILE MONTERO MD Attending Physician: MARYURI HARDING DO Discharge Summary PROCEDURES PERFORMED DURING STAY: None. ADMITTING / DISCHARGE DIAGNOSES: 1. ACUTE CHOLECYSTITIS: Resolved 2. Ileus: Resolved 3. Coronary artery disease status post PCI, hyperlipidemia 4. Glaucoma 5. MDS with pancytopenia 6. Neutropenia 7. Acute on Chronic anemia HOSPITAL COURSE: 89 yo male presented with increasing abdominal pain and nausea. Found to have Acute Cholecystitis and ileus. Was given IV fluids, bowel rest and eventually was able to advance diet. Was not felt to need immediate surgery. IV Meropenem was changed to Cipro PO and tolerating diet. Had formed BM prior to discharge. Regarding his Pancytopenia and MDS: he did drop his hgb and ANC dropped below 500. Given two days Neupogen and 3 units PRBC. Hb responded to 8.7 and felt to be appropriate for home discharge with appropriate follow up. DISCHARGE MEDICATIONS: Please see below. ALLERGIES: Please see below. PHYSICAL EXAMINATION: VITAL SIGNS: Please see below. GENERAL: No acute distress, alert and oriented 3 HEENT: PERRLA. Throat clear. Neck supple, no adenopathy CARDIOVASCULAR: Regular rate and rhythm. RESPIRATORY: Clear to auscultation bilaterally. ABDOMINAL: Soft, nontender, distended, positive bowel sounds. No masses. No rebound EXTREMITIES: No edema, no calf tenderness NEUROLOGICAL: Cranial nerves II through XII grossly intact PSYCHOLOGICAL: Negative LABORATORY DATA: Please see below. ACTIVITY: As tolerated. DIET: regular. DISCHARGE Condition: good] DISPOSITION: Home DISCHARGE INSTRUCTIONS: Discharge home. Follow up with Dr. Douglas in one week. See PCP in 3-4 weeks and keep follow up with Dr. Montero as scheduled. Seek Medical attention should symptoms worsen. Patient voices understanding. DISCHARGE CONDITION: Stable. TIME SPENT ON DISCHARGE: Greater than 35 minutes. Vital Signs/I&Os Vital Signs Date Time Temp Pulse Resp B/P (MAP) Pulse Ox O2 Delivery O2 Flow Rate FiO2 01/11/17 14:00 98.6 67 18 115/53 (73) 100 01/11/17 06:00 Room Air I&O- Last 24 Hours up to 6 AM 01/12/17 05:59 Intake Total 720 ml Output Total 0 ml Balance 720 ml Laboratory Data Labs 24H Laboratory Tests 2 01/11/17 05:09: Immature Granulocyte % (Auto) 6.6H, White Blood Count 0.9*L, Red Blood Count 2.02L, Hemoglobin 6.5*L, Hematocrit 19.2L, Mean Corpuscular Volume 95.0, Mean Corpuscular Hemoglobin 32.2, Mean Corpuscular Hemoglobin Concent 33.9, Red Cell Distribution Width 23.5H, Platelet Count 18*L, Neutrophils (%) (Auto) 49.4, Lymphocytes (%) (Auto) 33.0, Monocytes (%) (Auto) 6.6H, Eosinophils (%) (Auto) 4.4H, Basophils (%) (Auto) 0.0, Neutrophils # (Auto) 0.5L, Lymphocytes # (Auto) 0.3L, Monocytes # (Auto) 0.1, Eosinophils # (Auto) 0.0, Basophils # (Auto) 0.0, Immature Granulocyte # (Auto) 0.1H, Nucleated Red Blood Cells % (auto) 0.0, Anion Gap 6L, Glomerular Filtration Rate > 60.0, Blood Urea Nitrogen 19H, Creatinine 0.58L, Sodium Level 140, Potassium Level 3.6, Chloride Level 107, Carbon Dioxide Level 27, Calcium Level 7.8L, Aspartate Amino Transf (AST/SGOT) 17, Alanine Aminotransferase (ALT/SGPT) 26, Alkaline Phosphatase 67, Total Bilirubin 1.0, Total Protein 5.9L, Albumin 2.6L, Magnesium Level 2.0, C- Reactive Protein, Quantitative 8.38H, Albumin/Globulin Ratio 0.79L CBC/BMP Laboratory Tests 01/11/17 05:09 Red Blood Count 2.02 L, Mean Corpuscular Volume 95.0, Mean Corpuscular Hemoglobin 32.2, Mean Corpuscular Hemoglobin Concent 33.9, Red Cell Distribution Width 23.5 H, Neutrophils (%) (Auto) 49.4, Lymphocytes (%) (Auto) 33.0, Monocytes (%) (Auto) 6.6 H, Eosinophils (%) (Auto) 4.4 H, Basophils (%) ( Auto) 0.0, Neutrophils # (Auto) 0.5 L, Lymphocytes # (Auto) 0.3 L, Monocytes # ( Auto) 0.1, Eosinophils # (Auto) 0.0, Basophils # (Auto) 0.0, Calcium Level 7.8 L , Aspartate Amino Transf (AST/SGOT) 17, Alanine Aminotransferase (ALT/SGPT) 26, Alkaline Phosphatase 67, Total Bilirubin 1.0, Total Protein 5.9 L, Albumin 2.6 L 01/11/17 15:14 Microbiology Microbiology 01/07/17 Blood Culture - Preliminary, Resulted No Growth after 72 hours. All specime... 01/07/17 Blood Culture - Preliminary, Resulted No Growth after 72 hours. All specime... 01/08/17 Urine Culture - Final, Complete Discharge Medications Scheduled Ciprofloxacin HCl (Cipro) 500 Mg Tab, 500 MG PO BID Deferasirox (Jadenu) 180 Mg Tab, 540 MG PO DAILY, (Reported) Furosemide (Lasix) 20 Mg Tab, 20 MG PO QHS, (Reported) Latanoprost (Xalatan) 0.005 % Anette, 1 DROP OU BID, (Reported) Timolol Maleate (Timolol Maleate) 0.5 % Anette, 1 DROP OU BID, (Reported) Scheduled PRN (Stool Softener) 100 Mg Tab, 100 MG PO DAILY PRN for CONSTIPATION, (Reported) Acetaminophen (Tylenol) 325 Mg Tab, 650 MG PO Q4H PRN for PAIN, (Reported) Nitroglycerin (Nitrostat) 0.4 Mg Subl, 0.4 MG SL NITRO PRN for CHEST PAIN, ( Reported) Allergies Coded Allergies: No Known Allergies (Unverified , 11/15/13) MARYURI HARDING DO Jan 11, 2017 16:14
[2017-01-30 14:31] LABS: IMMATURE PLATELET FRACTION % 3.1 % (0.0-10.9)
== END 2017-01-11 17:50 | disposition home or self-care (01) | DRG 445 ==
LOC: M PCU 15:59 → M MS5PR 01-09 14:58
PROVIDERS: ADMIT Hospitalist; ATTEND Hospitalist
PROC: 30233N1 Transfusion of Nonautologous Red Blood Cells into Peripheral Vein, Percutaneous Approach (ICD-10-PCS; principal; 2017-01-10)
DX: K81.0 Acute cholecystitis (principal); K56.7 Ileus, unspecified; D46.9 Myelodysplastic syndrome, unspecified; I25.10 Atherosclerotic heart disease of native coronary artery without angina pectoris; E78.5 Hyperlipidemia, unspecified; D70.9 Neutropenia, unspecified; H40.9 Unspecified glaucoma; Z66 Do not resuscitate; Z79.899 Other long term (current) drug therapy

== ENCOUNTER → 2017-02-05 | Outpatient (REF) | payer MEDICARE, OTHER ==
[~2017-02-05] MED LIST changes: +CIPR-249 PO; +JADE1TAB2 PO; +LASI20TA PO; +NITR4TASL SL; +STOO100T PO; +TIMO0.5S29 OU; +TYLE325T5 PO
== END ==
LOC: M LAB REF 12:10
PROVIDERS: ATTEND Internal Medicine Medical Oncology
DX: D46.9 Myelodysplastic syndrome, unspecified (principal)

== ENCOUNTER 2017-03-02 09:55 | Outpatient (CLI) | payer MEDICARE, OTHER ==
[~2017-03-02] VITALS: Ht 170.2 cm; Wt 56.4 kg
[~2017-03-02 09:55] MED LIST changes: +ACETAMINOPHEN TAB 650MG DOSE (2X325MG) PO SCH; +diphenhydrAMINE 25 MG CAP PO SCH
== END 2017-03-02 16:15 | disposition home or self-care (01) ==
LOC: M INFU 09:55
PROVIDERS: ATTEND Internal Medicine Medical Oncology
DX: D46.9 Myelodysplastic syndrome, unspecified (principal); Z96.1 Presence of intraocular lens; Z95.5 Presence of coronary angioplasty implant and graft; Z85.828 Personal history of other malignant neoplasm of skin; Z79.899 Other long term (current) drug therapy
CPT/HCPCS: 36430; 86850; 86900; 86901; 86920; P9016

== ENCOUNTER 2017-03-10 10:20 | Outpatient (CLI) | payer MEDICARE, OTHER ==
[~2017-03-10] VITALS: Ht 170.2 cm; Wt 56.4 kg
[~2017-03-10 10:20] MED LIST changes: -ACETAMINOPHEN TAB 650MG DOSE (2X325MG) PO SCH; -diphenhydrAMINE 25 MG CAP PO SCH
[2017-03-10] MEDS ORDERED: diphenhydrAMINE 25 MG CAP PO ONE (10:45)
[2017-03-10] MEDS ORDERED: ACETAMINOPHEN TAB 650MG DOSE (2X325MG) PO ONE (10:45)
== END 2017-03-10 16:15 | disposition home or self-care (01) ==
LOC: M INFU 10:20
PROVIDERS: ATTEND Internal Medicine Medical Oncology
DX: D64.9 Anemia, unspecified (principal); Z96.1 Presence of intraocular lens; Z95.5 Presence of coronary angioplasty implant and graft; Z79.899 Other long term (current) drug therapy
CPT/HCPCS: 36430; 86850; 86900; 86901; 86920; P9016

== ENCOUNTER 2017-03-23 09:41 | Outpatient (CLI) | payer MEDICARE, OTHER ==
[2017-03-23] MEDS ORDERED: diphenhydrAMINE 25 MG CAP PO ONE (09:45)
[2017-03-23] MEDS ORDERED: ACETAMINOPHEN TAB 650MG DOSE (2X325MG) PO ONE (09:45)
== END 2017-03-23 16:45 | disposition home or self-care (01) ==
LOC: M INFU 09:41
PROVIDERS: ATTEND Internal Medicine Medical Oncology
DX: D64.9 Anemia, unspecified (principal); Z96.1 Presence of intraocular lens; Z95.5 Presence of coronary angioplasty implant and graft; Z85.828 Personal history of other malignant neoplasm of skin; Z79.899 Other long term (current) drug therapy
CPT/HCPCS: 36430; 86850; 86900; 86901; 86920; P9016

== ENCOUNTER 2017-03-30 10:09 | Outpatient (CLI) | payer MEDICARE, OTHER ==
[~2017-03-30] VITALS: Ht 170.2 cm; Wt 56.4 kg
[~2017-03-30 10:09] MED LIST changes: +ACETAMINOPHEN TAB 650MG DOSE (2X325MG) PO SCH; +diphenhydrAMINE 25 MG CAP PO SCH
== END 2017-03-30 15:55 | disposition home or self-care (01) ==
LOC: M INFU 10:09
PROVIDERS: ATTEND Internal Medicine Medical Oncology
DX: D64.9 Anemia, unspecified (principal); Z96.1 Presence of intraocular lens; Z95.5 Presence of coronary angioplasty implant and graft; Z85.828 Personal history of other malignant neoplasm of skin; Z79.899 Other long term (current) drug therapy
CPT/HCPCS: 36430; 86850; 86900; 86901; 86920; P9016

== ENCOUNTER 2017-04-08 14:32 | Inpatient (IN) | payer MEDICARE, OTHER ==
[2017-04-08 15:48] LABS: HEMATOCRIT 16.3 % (42.0-52.0); MEAN CORPUSCULAR HEMOGLOBIN 30.6 pg (27.0-33.0); MEAN CORPUSCULAR HGB CONC 34.4 g/dl (32.0-36.5); MEAN CORPUSCULAR VOLUME 89.1 fl (80.0-96.0); RED BLOOD COUNT 1.83 10^6/uL (4.30-6.10); RED CELL DISTRIBUTION WIDTH 20.4 % (11.5-14.5)
[2017-04-08 15:51] LABS: WHITE BLOOD COUNT 0.5 10^3/uL (4.0-10.0)
[2017-04-08 15:52] LABS: ADD MANUAL DIFFER YES; BLASTS POS FLAG; DIFF SLIDE NUMBER 250; HEMOGLOBIN 5.6 g/dl (14.0-18.0); LEFT SHIFT POS FLAG; PLATELET COUNT, AUTOMATED 9 10^3/uL (150-450); POS COUNT POS FLAG; POSITIVE DIFF POS FLAG; POSITIVE MORPH POS FLAG; WBC SCAT POS FLAG
[2017-04-08 15:53] LABS: IMMATURE PLATELET FRACTION % 2.9 % (0.0-10.9)
[2017-04-08 16:02] LABS: APPEARANCE, URINE CLEAR (CLEAR); BACTERIA, URINE AUTO NEGATIVE (NEGATIVE); BILIRUBIN, URINE AUTO NEGATIVE (NEGATIVE); BLOOD, URINE BLOOD NEGATIVE (NEGATIVE); COLOR, URINE YELLOW (YELLOW); GLUCOSE, URINE (UA) AUTO NEGATIVE (NEGATIVE); KETONE, URINE AUTO NEGATIVE (NEGATIVE); LEUKOCYTE ESTERASE, URINE AUTO NEGATIVE (NEGATIVE); NITRITE, URINE AUTO NEGATIVE (NEGATIVE); PROTEIN, URINE AUTO NEGATIVE (NEGATIVE); RBC, URINE AUTO 1 /HPF (0-3); SPECIFIC GRAVITY URINE AUTO 1.016 (1.002-1.035); SQUAMOUS EPITHELIAL CELL UR AU 0 /HPF (0-6); UROBILINOGEN, URINE AUTO 0.2 mg/dL (0.0-2.0); WBC, URINE AUTO 0 /HPF (0-3)
[2017-04-08 16:04] LABS: ANION GAP 7 MEQ/L (8-16); BLOOD UREA NITROGEN 31 MG/DL (7-18); CALCIUM LEVEL 8.1 MG/DL (8.8-10.2); CARBON DIOXIDE LEVEL 26 MEQ/L (21-32); CHLORIDE LEVEL 105 MEQ/L (98-107); CREATININE FOR GFR 1.05 MG/DL (0.70-1.30); GLOMERULAR FILTRATION RATE > 60.0 (>35); GLUCOSE, FASTING 157 MG/DL (83-110); POTASSIUM SERUM 4.2 MEQ/L (3.5-5.1); SODIUM LEVEL 138 MEQ/L (136-145)
[2017-04-08 16:06] LABS: ATYPICAL LYMPH 2 % (0-5); BANDS 14 % (< 11); LYMPHOCYTES 32 % (16-52); NEUTROPHILS 52 % (35-75)
[2017-04-08 16:07] LABS: ANISOCYTOSIS 2+; PLATELET ESTIMATE MARKED DECREASE (NORMAL)
[2017-04-08] MEDS: IMIPENEM/CILASTATIN 500 MG in D5W MINI-BAG PLUS 100 ML IV (16:37)
[2017-04-08] MEDS ORDERED: ACETAMINOPHEN TAB 650MG DOSE (2X325MG) PO (17:15)
[2017-04-08] MEDS ORDERED: METOCLOPRAMIDE 10 MG TAB PO (17:30)
[2017-04-08] MEDS ORDERED: VANCOMYCIN HCL 1,000 MG, VIAL MATE ADAPTER 1 EACH in D5W 250 ML IV (17:30)
[2017-04-08] MEDS ORDERED: BISACODYL 5 MG TAB PO (17:30)
[2017-04-08] MEDS ORDERED: ONDANSETRON 4 MG TAB (S0181) PO (17:30)
[2017-04-08] MEDS: ACETAMINOPHEN TAB 650MG DOSE (2X325MG) PO (17:55)
[2017-04-08 18:01] LABS: LACTIC ACID SEPSIS PROTOCOL 2.4 MMOL/L (0.4-2.0)
[2017-04-08 18:06] LABS: REASON FOR REVIEW COMPREHENSIVE REVIEW; SLIDE REVIEW Report; SOURCE PERIPHERAL SMEAR
[2017-04-08 18:07] LABS: ALBUMIN 3.4 GM/DL (3.2-5.2); ALBUMIN/GLOBULIN RATIO 0.94 (1.00-1.93); ALKALINE PHOSPHATASE 88 U/L (45-117); ALT/SGPT 55 U/L (12-78); AST/SGOT 37 U/L (7-37); BILIRUBIN,DIRECT 0.5 MG/DL (0.0-0.2); BILIRUBIN,TOTAL 1.6 MG/DL (0.2-1.0)
[2017-04-08 18:24] LABS: IMMEDIATE SPIN CROSSMATCH 1
[2017-04-08] MEDS: SENOKOT S TAB PO (21:00)
[2017-04-08] MEDS: LATANOPROST 0.005% OPHTH SOLN 2.5 ML OU (22:15)
[2017-04-08] MEDS: TIMOLOL MALEATE 0.5% OPHTH SOLN 5 ML OU (22:15)
[2017-04-08] MEDS: NS 1,000 ML IV (22:16)
[2017-04-08] MEDS: VANCOMYCIN HCL 1,000 MG, VIAL MATE ADAPTER 1 EACH in D5W 250 ML IV (22:16)
[2017-04-08] MEDS: MEROPENEM INJ 500 MG in APPROPRIATE DILUENT 1 EA IV (23:45)
[2017-04-09] MEDS: ACETAMINOPHEN TAB 650MG DOSE (2X325MG) PO (01:07)
[2017-04-09 01:21] LABS: IMMEDIATE SPIN CROSSMATCH 1 3
[2017-04-09] MEDS: MEROPENEM INJ 500 MG in APPROPRIATE DILUENT 1 EA IV ×2 (06:01→15:37)
[2017-04-09 07:17] LABS: EOS % 3.4 % (0.0-3.0); HEMATOCRIT 23.8 % (42.0-52.0); HEMOGLOBIN 8.3 g/dl (14.0-18.0); IMMATURE GRANULOCYTE % 1.7 % (0-0); LYMPH % 33.9 % (24.0-44.0); MEAN CORPUSCULAR HEMOGLOBIN 30.7 pg (27.0-33.0); MEAN CORPUSCULAR HGB CONC 34.9 g/dl (32.0-36.5); MEAN CORPUSCULAR VOLUME 88.1 fl (80.0-96.0); MONO % 5.1 % (0.0-5.0); NEUTROPHILS % 55.9 % (36.0-66.0); RED CELL DISTRIBUTION WIDTH 16.5 % (11.5-14.5)
[2017-04-09 07:24] LABS: WHITE BLOOD COUNT 0.6 10^3/uL (4.0-10.0)
[2017-04-09 07:25] LABS: ADD MANUAL DIFFER NO; BLASTS POS FLAG; DIFF SLIDE NUMBER 86; LEFT SHIFT POS FLAG; LYMPH # 0.2 10^3/uL (1.5-4.5); NEUTROPHILS # 0.3 10^3/uL (1.8-7.7); PLATELET COUNT, AUTOMATED 14 10^3/uL (150-450); POS COUNT POS FLAG; POSITIVE DIFF POS FLAG; POSITIVE MORPH POS FLAG; WBC SCAT POS FLAG
[2017-04-09 07:38] LABS: ANION GAP 5 MEQ/L (8-16); BLOOD UREA NITROGEN 28 MG/DL (7-18); CALCIUM LEVEL 7.9 MG/DL (8.8-10.2); CARBON DIOXIDE LEVEL 28 MEQ/L (21-32); CHLORIDE LEVEL 106 MEQ/L (98-107); CREATININE FOR GFR 0.86 MG/DL (0.70-1.30); GLOMERULAR FILTRATION RATE > 60.0 (>35); GLUCOSE, FASTING 111 MG/DL (83-110); POTASSIUM SERUM 4.2 MEQ/L (3.5-5.1); SODIUM LEVEL 139 MEQ/L (136-145)
[2017-04-09 07:41] LABS: LACTIC ACID SEPSIS PROTOCOL 1.3 MMOL/L (0.4-2.0)
[2017-04-09] MEDS: SENOKOT S TAB PO ×2 (08:53→21:39)
[2017-04-09] MEDS: LATANOPROST 0.005% OPHTH SOLN 2.5 ML OU ×2 (08:53→21:40)
[2017-04-09] MEDS: TIMOLOL MALEATE 0.5% OPHTH SOLN 5 ML OU ×2 (08:53→21:40)
[2017-04-09] MEDS: NS 1,000 ML IV ×3 (11:09→11:15)
[2017-04-09] MEDS: VANCOMYCIN HCL 1,000 MG, VIAL MATE ADAPTER 1 EACH in D5W 250 ML IV (18:14)
[2017-04-10] MEDS: MEROPENEM INJ 500 MG in APPROPRIATE DILUENT 1 EA IV ×4 (00:11→23:58)
[2017-04-10] MEDS: NS 1,000 ML IV ×2 (03:38→15:40)
[2017-04-10 06:02] LABS: EOS % 1.7 % (0.0-3.0); HEMATOCRIT 22.7 % (42.0-52.0); HEMOGLOBIN 7.9 g/dl (14.0-18.0); LYMPH # 0.2 10^3/uL (1.5-4.5); LYMPH % 34.5 % (24.0-44.0); MEAN CORPUSCULAR HEMOGLOBIN 30.9 pg (27.0-33.0); MEAN CORPUSCULAR HGB CONC 34.8 g/dl (32.0-36.5); MEAN CORPUSCULAR VOLUME 88.7 fl (80.0-96.0); MONO % 5.2 % (0.0-5.0); NEUTROPHILS # 0.3 10^3/uL (1.8-7.7); NEUTROPHILS % 53.4 % (36.0-66.0); RED BLOOD COUNT 2.56 10^6/uL (4.30-6.10); RED CELL DISTRIBUTION WIDTH 17.3 % (11.5-14.5)
[2017-04-10 06:07] LABS: IMMATURE GRANULOCYTE % 5.2 % (0-0); PLATELET COUNT, AUTOMATED 12 10^3/uL (150-450); WHITE BLOOD COUNT 0.6 10^3/uL (4.0-10.0)
[2017-04-10 06:08] LABS: LEFT SHIFT POS FLAG; POS COUNT POS FLAG; POSITIVE DIFF POS FLAG; POSITIVE MORPH POS FLAG; WBC SCAT POS FLAG
[2017-04-10 06:09] LABS: IMMATURE PLATELET FRACTION % 5.2 % (0.0-10.9)
[2017-04-10 06:19] LABS: ANION GAP 7 MEQ/L (8-16); BLOOD UREA NITROGEN 21 MG/DL (7-18); CALCIUM LEVEL 7.7 MG/DL (8.8-10.2); CARBON DIOXIDE LEVEL 24 MEQ/L (21-32); CHLORIDE LEVEL 109 MEQ/L (98-107); CREATININE FOR GFR 0.68 MG/DL (0.70-1.30); GLOMERULAR FILTRATION RATE > 60.0 (>35); GLUCOSE, FASTING 108 MG/DL (83-110); POTASSIUM SERUM 4.2 MEQ/L (3.5-5.1); SODIUM LEVEL 140 MEQ/L (136-145)
[2017-04-10] MEDS: TIMOLOL MALEATE 0.5% OPHTH SOLN 5 ML OU ×2 (09:34→20:59)
[2017-04-10] MEDS: SENOKOT S TAB PO ×2 (09:34→20:59)
[2017-04-10] MEDS: LATANOPROST 0.005% OPHTH SOLN 2.5 ML OU ×2 (09:35→20:59)
[2017-04-10] MEDS: ACETAMINOPHEN TAB 650MG DOSE (2X325MG) PO (15:38)
[2017-04-10 18:35] LABS: VANCOMYCIN LEVEL TROUGH 6.8 UG/ML (10.0-20.0)
[2017-04-10] MEDS: VANCOMYCIN HCL 1,000 MG, VIAL MATE ADAPTER 1 EACH in D5W 250 ML IV (19:01)
[2017-04-11] MEDS: ALBUTEROL SULFATE 2.5 MG/0.5 ML INH NEB SOLN INH (03:31)
[2017-04-11 05:10] LABS: EOS % 1.8 % (0.0-3.0); HEMATOCRIT 22.5 % (42.0-52.0); HEMOGLOBIN 7.8 g/dl (14.0-18.0); IMMATURE GRANULOCYTE % 1.8 % (0-0); LYMPH % 33.9 % (24.0-44.0); MEAN CORPUSCULAR HEMOGLOBIN 30.7 pg (27.0-33.0); MEAN CORPUSCULAR HGB CONC 34.7 g/dl (32.0-36.5); MEAN CORPUSCULAR VOLUME 88.6 fl (80.0-96.0); MONO % 5.4 % (0.0-5.0); NEUTROPHILS % 57.1 % (36.0-66.0); RED BLOOD COUNT 2.54 10^6/uL (4.30-6.10); RED CELL DISTRIBUTION WIDTH 17.8 % (11.5-14.5)
[2017-04-11 05:22] LABS: WHITE BLOOD COUNT 0.6 10^3/uL (4.0-10.0)
[2017-04-11 05:23] LABS: LEFT SHIFT POS FLAG; LYMPH # 0.2 10^3/uL (1.5-4.5); NEUTROPHILS # 0.3 10^3/uL (1.8-7.7); PLATELET COUNT, AUTOMATED 12 10^3/uL (150-450); POS COUNT POS FLAG; POSITIVE DIFF POS FLAG; POSITIVE MORPH POS FLAG
[2017-04-11 05:24] LABS: ANION GAP 7 MEQ/L (8-16); BLOOD UREA NITROGEN 17 MG/DL (7-18); CALCIUM LEVEL 7.8 MG/DL (8.8-10.2); CARBON DIOXIDE LEVEL 24 MEQ/L (21-32); CHLORIDE LEVEL 112 MEQ/L (98-107); CREATININE FOR GFR 0.61 MG/DL (0.70-1.30); GLOMERULAR FILTRATION RATE > 60.0 (>35); GLUCOSE, FASTING 113 MG/DL (83-110); SODIUM LEVEL 143 MEQ/L (136-145)
[2017-04-11] MEDS: MEROPENEM INJ 500 MG in APPROPRIATE DILUENT 1 EA IV ×3 (06:32→23:48)
[2017-04-11] MEDS: VANCOMYCIN HCL 1,000 MG, VIAL MATE ADAPTER 1 EACH in D5W 250 ML IV (07:30)
[2017-04-11] MEDS ORDERED: JADENU 180 MG PO (09:00)
[2017-04-11] MEDS: SENOKOT S TAB PO ×2 (09:21→20:08)
[2017-04-11] MEDS: TIMOLOL MALEATE 0.5% OPHTH SOLN 5 ML OU ×2 (09:21→20:08)
[2017-04-11] MEDS: LATANOPROST 0.005% OPHTH SOLN 2.5 ML OU ×2 (09:21→20:09)
[2017-04-11 15:34] LABS: IMMEDIATE SPIN CROSSMATCH 1 2
[2017-04-11] MEDS: FUROSEMIDE 20 MG/2 ML VIAL (J1940) IV (18:50)
[2017-04-12] MEDS: ACETAMINOPHEN TAB 650MG DOSE (2X325MG) PO (00:38)
[2017-04-12] MEDS: VANCOMYCIN HCL 1,000 MG, VIAL MATE ADAPTER 1 EACH in D5W 250 ML IV (01:49)
[2017-04-12 04:40] LABS: IMMEDIATE SPIN CROSSMATCH 1
[2017-04-12] MEDS: MEROPENEM INJ 500 MG in APPROPRIATE DILUENT 1 EA IV (06:46)
[2017-04-12 07:01] LABS: EOS % 2.5 % (0.0-3.0); HEMATOCRIT 32.4 % (42.0-52.0); IMMATURE GRANULOCYTE % 1.2 % (0-0); LYMPH # 0.3 10^3/uL (1.5-4.5); LYMPH % 35.8 % (24.0-44.0); MEAN CORPUSCULAR HEMOGLOBIN 30.6 pg (27.0-33.0); MEAN CORPUSCULAR HGB CONC 34.9 g/dl (32.0-36.5); MEAN CORPUSCULAR VOLUME 87.8 fl (80.0-96.0); MONO % 4.9 % (0.0-5.0); NEUTROPHILS % 55.6 % (36.0-66.0); RED BLOOD COUNT 3.69 10^6/uL (4.30-6.10); RED CELL DISTRIBUTION WIDTH 16.7 % (11.5-14.5)
[2017-04-12 07:05] LABS: NEUTROPHILS # 0.5 10^3/uL (1.8-7.7); PLATELET COUNT, AUTOMATED 17 10^3/uL (150-450); POS COUNT POS FLAG; POSITIVE DIFF POS FLAG; WHITE BLOOD COUNT 0.8 10^3/uL (4.0-10.0)
[2017-04-12 07:06] LABS: HEMOGLOBIN 11.3 g/dl (14.0-18.0)
[2017-04-12 07:07] LABS: IMMATURE PLATELET FRACTION % 1.9 % (0.0-10.9)
[2017-04-12 07:25] LABS: ANION GAP 9 MEQ/L (8-16); BLOOD UREA NITROGEN 17 MG/DL (7-18); C REACTIVE PROTEIN QUANTITATIV 8.78 MG/DL (0.00-0.30); CALCIUM LEVEL 8.1 MG/DL (8.8-10.2); CARBON DIOXIDE LEVEL 26 MEQ/L (21-32); CHLORIDE LEVEL 106 MEQ/L (98-107); CREATININE FOR GFR 0.64 MG/DL (0.70-1.30); GLOMERULAR FILTRATION RATE > 60.0 (>35); GLUCOSE, FASTING 100 MG/DL (83-110); POTASSIUM SERUM 3.9 MEQ/L (3.5-5.1); SODIUM LEVEL 141 MEQ/L (136-145)
[2017-04-12] MEDS ORDERED: LevoFLOXacin 500 MG TABLET PO (09:00)
[2017-04-12] MEDS: SENOKOT S TAB PO (09:56)
[2017-04-12] MEDS: FUROSEMIDE 20 MG TAB PO (09:57)
[2017-04-12] MEDS: TIMOLOL MALEATE 0.5% OPHTH SOLN 5 ML OU (09:57)
[2017-04-12] MEDS: LATANOPROST 0.005% OPHTH SOLN 2.5 ML OU (09:57)
== END 2017-04-12 13:55 | disposition home or self-care (01) | DRG 808 ==
LOC: M ED 14:32 → M ED INP 18:30 → M PCU 20:51
PROC: 30233R1 Transfusion of Nonautologous Platelets into Peripheral Vein, Percutaneous Approach (ICD-10-PCS; 2017-04-08)
PROC: 30233N1 Transfusion of Nonautologous Red Blood Cells into Peripheral Vein, Percutaneous Approach (ICD-10-PCS; principal; 2017-04-09)
DX: D70.9 Neutropenia, unspecified (principal); J18.9 Pneumonia, unspecified organism; D46.9 Myelodysplastic syndrome, unspecified; E83.111 Hemochromatosis due to repeated red blood cell transfusions; E78.5 Hyperlipidemia, unspecified; I25.10 Atherosclerotic heart disease of native coronary artery without angina pectoris; Z95.9 Presence of cardiac and vascular implant and graft, unspecified; Z79.899 Other long term (current) drug therapy; Z98.49 Cataract extraction status, unspecified eye; Z92.21 Personal history of antineoplastic chemotherapy

== ENCOUNTER 2017-04-20 10:02 | Outpatient (CLI) | payer MEDICARE, OTHER ==
[2017-04-20] MEDS: ACETAMINOPHEN TAB 650MG DOSE (2X325MG) PO (10:39)
[2017-04-20] MEDS: diphenhydrAMINE 25 MG CAP PO (10:39)
[2017-04-20 11:10] LABS: IMMEDIATE SPIN CROSSMATCH 1
[2017-04-20 12:55] LABS: IMMEDIATE SPIN CROSSMATCH 1 1
== END 2017-04-20 15:30 | disposition home or self-care (01) ==
LOC: M INFU 10:02
DX: D64.9 Anemia, unspecified (principal); Z79.899 Other long term (current) drug therapy
CPT/HCPCS: 36430